=== PATIENT | female | born 1980 | race Caucasian/White ===

== ENCOUNTER 2016-07-25 15:38 | Emergency (ER) | payer OTHER ==
[~2016-07-25] VITALS: Ht 154.9 cm; Wt 79.5 kg
[~2016-07-25 15:38] MED LIST: NAPR500T PO; PENI250T59 PO
[2016-07-25 15:40] VITALS: BP 164/103; PULSE 74; RESP 20; TEMP 98; O2SAT 97
--- NOTE | 2016-07-25 16:05 | PD ---
HPI Chief Complaint: Chest Pain Time Seen by Provider: 16:05 Travel History International Travel<30 days: No Contact w/Intl Traveler<30days: No Traveled to known affect area: No History of Present Illness HPI 36-year-old female with history trigeminal neuralgia, presents to emergency department for evaluation left-sided chest pain. Pain has been ongoing for the last 2 weeks. She states she pushes on her chest or moves her shoulder back the pain is there. Denies any recent illnesses, fever, or chills. States that her primary care provider has given her baclofen for the pain but it does not seem to be helping. She states she "hurts all over." She has no other symptoms to report this time. PFS Past Medical History Immunizations Current: Yes : 4 Para: 2 Miscarriage: 1 : 1 Past Surgical History Appendectomy: Yes Cholecystectomy: Yes Social History Alcohol Use: No Tobacco Use: Yes Substance Use: No Allergies-Medications (Allergen,Severity, Reaction): Coded Allergies: Avocado (Verified Allergy, Severe, Itching, 07/25/16) Banana (Verified Allergy, Severe, Itching, 07/25/16) Carrot (Verified Allergy, Severe, Itching, 07/25/16) Plums (Verified Allergy, Severe, Itching, 07/25/16) Tiff (Verified Allergy, Severe, Itching, 07/25/16) Borden (Verified Allergy, Intermediate, Itching, 07/25/16) throat itches [place]cin[place] (Verified Allergy, Unknown, Itching, 07/25/16) Garfield (Verified Allergy, Unknown, Itching, 07/25/16) Reported Meds & Prescriptions Reported Meds & Active Scripts Active Naproxen 500 Mg Tab 500 Mg PO BID 7 Days Penicillin Vk (Penicillin V Potassium) 250 Mg Tab 500 Mg PO Q8H 10 Days Review of Systems Except as stated in HPI: all other systems reviewed are Neg Physical Exam Narrative GENERAL: Well-nourished female patient, in no acute distress SKIN: Warm and dry. HEAD: Atraumatic. Normocephalic. EYES: Pupils equal and round. No scleral icterus. No injection or drainage. ENT: No nasal bleeding or discharge. Mucous membranes pink and moist. NECK: Trachea midline. No JVD. CARDIOVASCULAR: Regular rate and rhythm. No murmur appreciated. RESPIRATORY: No accessory muscle use. Clear to auscultation. Breath sounds equal bilaterally. Tenderness elicited palpation over the right anterior chest. No crepitus. Even respirations. GASTROINTESTINAL: Abdomen soft, non-tender, nondistended. Hepatic and splenic margins not palpable. MUSCULOSKELETAL: No obvious deformities. No clubbing. No cyanosis. No edema. NEUROLOGICAL: Awake and alert. No obvious cranial nerve deficits. Motor grossly within normal limits. Normal speech. PSYCHIATRIC: Appropriate mood and affect; insight and judgment normal. Data Data Last Documented VS Vital Signs Date Time Temp Pulse Resp B/P Pulse Ox O2 Delivery O2 Flow Rate FiO2 07/25/16 15:40 98.0 74 20 164/103 97 Room Air Orders Electrocardiogram (07/25/16 16:00) Complete Blood Count With Diff (07/25/16 16:04) Basic Metabolic Panel (Bmp) (07/25/16 16:04) Troponin I (07/25/16 16:04) Creatine Kinase (Cpk) (07/25/16 16:04) Coag Profile (07/25/16 16:04) Urinalysis - C+S If Indicated (07/25/16 16:04) Chest, Single Ap (07/25/16 ) Labs Laboratory Tests Test 07/25/16 07/25/16 16:20 16:25 Urine Color LIGHT-YELLOW Urine Turbidity CLEAR Urine pH 5.5 Urine Specific [place] 1.012 Urine Protein NEG mg/dL Urine Glucose (UA) NEG mg/dL Urine Ketones NEG mg/dL Urine Occult Blood NEG Urine Nitrite NEG Urine Bilirubin NEG Urine Urobilinogen LESS THAN 2.0 MG/DL Urine Leukocyte Esterase NEG Urine WBC LESS THAN 1 /hpf Urine Squamous Epithelial 1 /hpf Cells Microscopic Urinalysis Comment CULT NOT INDICATED White Blood Count 7.9 TH/MM3 Red Blood Count 4.51 MIL/MM3 Hemoglobin 13.9 GM/DL Hematocrit 40.6 % Mean Corpuscular Volume 90.0 FL Mean Corpuscular Hemoglobin 30.9 PG Mean Corpuscular Hemoglobin 34.3 % Concent Red Cell Distribution Width 12.5 % Platelet Count 187 TH/MM3 Mean Platelet Volume 9.7 FL Neutrophils (%) (Auto) 56.7 % Lymphocytes (%) (Auto) 34.2 % Monocytes (%) (Auto) 6.2 % Eosinophils (%) (Auto) 2.2 % Basophils (%) (Auto) 0.7 % Neutrophils # (Auto) 4.5 TH/MM3 Lymphocytes # (Auto) 2.7 TH/MM3 Monocytes # (Auto) 0.5 TH/MM3 Eosinophils # (Auto) 0.2 TH/MM3 Basophils # (Auto) 0.1 TH/MM3 CBC Comment DIFF FINAL Differential Comment Prothrombin Time 10.4 SEC Prothromb Time International 0.9 RATIO Ratio Activated Partial 27.9 SEC Thromboplast Time Sodium Level 140 MEQ/L Potassium Level 3.8 MEQ/L Chloride Level 107 MEQ/L Carbon Dioxide Level 25.3 MEQ/L Anion Gap 8 MEQ/L Blood Urea Nitrogen 13 MG/DL Creatinine 0.78 MG/DL Estimat Glomerular Filtration 83 ML/MIN Rate Random Glucose 84 MG/DL Calcium Level 9.1 MG/DL Total Creatine Kinase 60 U/L Troponin I LESS THAN 0.02 NG/ML MDM Medical Decision Making Medical Screen Exam Complete: Yes Emergency Medical Condition: Yes Medical Record Reviewed: Yes Differential Diagnosis mUSCLE STRAIN VERSUS PLEURITIC PAIN VERSUS CHEST PAIN VERSUS ATYPICAL CHEST PAIN VERSUS OSTEOARTHRITIS VERSUS ANXIETY Narrative Course 36-year-old female presents to emergency department for evaluation. Patient appears without distress. Workup was initiated in triage. Condition: Stable Savi Telles Jul 25, 2016 16:05
[2016-07-25 16:58] LABS: AUTOMATED NEUTROPHIL # 4.5 TH/MM3 (1.8-7.7); BASOPHIL # 0.1 TH/MM3 (0-0.2); BASOPHIL % 0.7 % (0.0-2.0); EOSINOPHIL # 0.2 TH/MM3 (0-0.4); EOSINOPHIL % 2.2 % (0.0-4.0); HEMATOCRIT 40.6 % (35.0-46.0); HEMO FLAGS DIFF FINAL; LYMPH % 34.2 % (9.0-44.0); LYMPHOCYTE # 2.7 TH/MM3 (1.0-4.8); MEAN CORPUSCULAR HEMOGLOBIN 30.9 PG (27.0-34.0); MEAN CORPUSCULAR HGB CONC 34.3 % (32.0-36.0); MONO % 6.2 % (0.0-8.0); NEUT % 56.7 % (16.0-70.0); PLATELET COUNT 187 TH/MM3 (150-450); RED BLOOD COUNT 4.51 MIL/MM3 (4.00-5.30); RED CELL DISTRIBUTION WIDTH 12.5 % (11.6-17.2); WHITE BLOOD COUNT 7.9 TH/MM3 (4.0-11.0)
[2016-07-25 17:12] LABS: APTT (PATIENT) 27.9 SEC (24.3-30.1); INTERNATIONAL NORMALIZED RATIO 0.9 RATIO; PROTHROMBIN TIME - PATIENT 10.4 SEC (9.8-11.6)
[2016-07-25 17:21] LABS: BLOOD, URINE NEG (NEG); GLUCOSE,URINE NEG (NEG); KETONE, URINE NEG (NEG); NITRITE,URINE NEG (NEG); PH, URINE 5.5 (5.0-8.5); SQUAMOUS EPITHELIAL CELL URINE 1 /hpf (0-5); URINE COLOR LIGHT-YELLOW (YELLW/STRAW)
[2016-07-25 17:25] LABS: COMMENT (UR) CULT NOT INDICATED; CULTURE IF INDICATED CULT NOT INDICATED
[2016-07-25 17:27] LABS: ANION GAP 8 MEQ/L (5-15); BICARBONATE 25.3 MEQ/L (21.0-32.0); BLOOD UREA NITROGEN 13 MG/DL (7-18); CHLORIDE 107 MEQ/L (98-107); GLOMERULAR FILTRATION RATE 83 ML/MIN (>89); POTASSIUM 3.8 MEQ/L (3.5-5.1); SODIUM (NA) 140 MEQ/L (136-145)
[2016-07-25 17:35] LABS: CREATINE KINASE 60 U/L (26-192)
--- NOTE | 2016-07-25 17:51 | RADRPT ---
EXAM DATE/TIME: 07/25/2016 17:37 [facility] COMPARISON: No previous studies available for comparison. INDICATIONS : Left side chest pain. MEDICAL HISTORY : None. SURGICAL HISTORY : None. ENCOUNTER: Initial ACUITY: 3 days PAIN SCORE: 5/10 LOCATION: Left chest FINDINGS: A single view of the chest demonstrates the lungs to be symmetrically aerated without evidence of mas s, infiltrate or effusion. The cardiomediastinal contours are unremarkable. Osseous structures are intact. CONCLUSION: Normal examination. Brent Todd MD on July 25, 2016 at 17:50 Board Certified Radiologist. This report was verified electronically.
[2016-07-25] MEDS ORDERED: EXCETAB PO (18:11)
[2016-07-25] MEDS ORDERED: BACL10TA PO (18:11)
[2016-07-25] MEDS ORDERED: GABA300C5 PO (18:11)
[2016-07-25] MEDS ORDERED: BUPR100CR PO (18:11)
[2016-07-25] MEDS ORDERED: ACETAMINOPHEN/HYDROcodone 325 MG/5 MG TAB PO ONE (18:15)
[2016-07-25 18:30] VITALS: BP 139/97; PULSE 80; RESP 15; O2SAT 98
[2016-07-25] MEDS ORDERED: HYDR-3533 PO (19:07)
--- NOTE | 2016-07-25 19:12 | PD ---
Physical Exam Date Seen by Provider: Jul 25, 2016 Time Seen by Provider: 19:07 Narrative 36-year-old female that presents to the ED for evaluation of left-sided chest pain and right face pain. Patient was properly examined by previous provider. Please refer to her note. I was asked to disposition patient pending labs and treatment plan. From my physical examination patient appears to have muscle scale pain causing the pain on the left chest. Appears to be costochondritis likely from her sleeping on that side. She does have chronic trigeminal neuralgia. Data Data Last Documented VS Vital Signs Date Time Temp Pulse Resp B/P Pulse Ox O2 Delivery O2 Flow Rate FiO2 07/25/16 18:30 80 15 139/97 98 Room Air 07/25/16 15:40 98.0 Orders Electrocardiogram (07/25/16 16:00) Complete Blood Count With Diff (07/25/16 16:04) Basic Metabolic Panel (Bmp) (07/25/16 16:04) Troponin I (07/25/16 16:04) Creatine Kinase (Cpk) (07/25/16 16:04) Coag Profile (07/25/16 16:04) Urinalysis - C+S If Indicated (07/25/16 16:04) Chest, Single Ap (07/25/16 ) D-Dimer (07/25/16 18:08) Acetamin-Hydrocod 325-5 Mg ([place] 5-325 (07/25/16 18:15) Labs Laboratory Tests Test 07/25/16 07/25/16 07/25/16 16:20 16:25 18:10 Urine Color LIGHT-YELLOW Urine Turbidity CLEAR Urine pH 5.5 Urine Specific [place] 1.012 Urine Protein NEG mg/dL Urine Glucose (UA) NEG mg/dL Urine Ketones NEG mg/dL Urine Occult Blood NEG Urine Nitrite NEG Urine Bilirubin NEG Urine Urobilinogen LESS THAN 2.0 MG/DL Urine Leukocyte Esterase NEG Urine WBC LESS THAN 1 /hpf Urine Squamous Epithelial 1 /hpf Cells Microscopic Urinalysis Comment CULT NOT INDICATED White Blood Count 7.9 TH/MM3 Red Blood Count 4.51 MIL/MM3 Hemoglobin 13.9 GM/DL Hematocrit 40.6 % Mean Corpuscular Volume 90.0 FL Mean Corpuscular Hemoglobin 30.9 PG Mean Corpuscular Hemoglobin 34.3 % Concent Red Cell Distribution Width 12.5 % Platelet Count 187 TH/MM3 Mean Platelet Volume 9.7 FL Neutrophils (%) (Auto) 56.7 % Lymphocytes (%) (Auto) 34.2 % Monocytes (%) (Auto) 6.2 % Eosinophils (%) (Auto) 2.2 % Basophils (%) (Auto) 0.7 % Neutrophils # (Auto) 4.5 TH/MM3 Lymphocytes # (Auto) 2.7 TH/MM3 Monocytes # (Auto) 0.5 TH/MM3 Eosinophils # (Auto) 0.2 TH/MM3 Basophils # (Auto) 0.1 TH/MM3 CBC Comment DIFF FINAL Differential Comment Prothrombin Time 10.4 SEC Prothromb Time International 0.9 RATIO Ratio Activated Partial 27.9 SEC Thromboplast Time Sodium Level 140 MEQ/L Potassium Level 3.8 MEQ/L Chloride Level 107 MEQ/L Carbon Dioxide Level 25.3 MEQ/L Anion Gap 8 MEQ/L Blood Urea Nitrogen 13 MG/DL Creatinine 0.78 MG/DL Estimat Glomerular Filtration 83 ML/MIN Rate Random Glucose 84 MG/DL Calcium Level 9.1 MG/DL Total Creatine Kinase 60 U/L Troponin I LESS THAN 0.02 NG/ML D-Dimer Quantitative (PE/DVT) 0.35 MG/L [facility] Medical Record Reviewed: Yes Supervised Visit with GAGE: No Interpretation(s) CBC & BMP Diagram 07/25/16 16:25 Troponin and CK-MB negative. Chest x-ray negative. D-dimer negative. EKG shows sinus rhythm with no sign of acute ischemia or arrhythmia read by me and attending. Differential Diagnosis Chest pain versus a typical chest pain versus costochondritis versus PE versus acute on chronic pain versus chronic pain Narrative Course 36-year-old female that presents to the ED for evaluation of chest pain and right hand pain. Patient was properly examined and was found to have signs and symptoms very consistent what appears to be possible skeletal pain. Imaging and labs were essentially unremarkable. I do not believe this is cardiac in nature. Patient concerned about the pain on the right side of the face that has not improved given medications that she's been taking. Patient already diagnosed with trigeminal neuralgia. Patient has an appointment with neurologist on August. I recommend close follow-up with neurologist for further management of the trigeminal pain. This time I will treat patient's pain with Lortab. I recommend that she follows up closely with PCP. Continue taking medications as prescribed to her. See ED worsening symptoms. Diagnosis Primary Impression: Acute costochondritis Additional Impression: Trigeminal neuralgia of right side of face Patient Instructions: General Instructions, Narcotic given in the ED Additional Instruction: Take medications as prescribed. Follow-up with PCP. See ED for any worsening symptoms. Do not drink or drive while taking pain medication. Apply ice or heat as needed for pain Med/Other Pt SpecificInfo: Prescription(s) given Scripts Hydrocodone-Acetaminophen (Lortab)5-325 Mg Tab1 Tab PO Q6H PRN (PAIN) #10 TAB Prov:Marv Nicole MD 07/25/16 Disposition: 01 DISCHARGE HOME Condition: Stable Marcio Shanks Jul 25, 2016 19:12
--- NOTE | 2016-07-26 16:12 | EKG ---
Date Performed: 07/25/2016 Time Performed: 16:05:04 PTAGE: 36 years EKG: Sinus rhythm WITH SINUS ARRHYTHMIA NORMAL ECG NO PREVIOUS TRACING DOCTOR: Berto Pandya Interpretating Date/Time 07/26/2016 16:10:28
== END 2016-07-25 19:17 | disposition home or self-care (01) ==
LOC: NEPE 15:38
DX: M94.0 Chondrocostal junction syndrome [Tietze] (principal); G50.0 Trigeminal neuralgia; Z72.0 Tobacco use; I49.8 Other specified cardiac arrhythmias
CPT/HCPCS: 71010; 80048; 81001; 82550; 84484; 85025; 85379; 85610; 85730; 93005